=== PATIENT | female | born 1990 ===

== ENCOUNTER 2024-01-30 17:50 | Outpatient (REF) | payer SELFPAY ==
[2024-01-31 14:29] LABS: Bacterial Vaginosis PCR POSITIVE (Negative); Candida Group PCR NOT DETECTED (Not Detect); Candida glab krusei PCR NOT DETECTED (Not Detect); Trichomonas vaginalis PCR NOT DETECTED (Not Detect)
[2024-01-31 15:03] LABS: CT PCR DETECTED (Not Detect.); NG PCR DETECTED (Not Detect.)
== END 2024-01-30 17:51 | disposition home or self-care (01) ==
LOC: HO.LNP 17:50
PROVIDERS: Visit Provider Nurse Practitioner
DX: N89.8 Other specified noninflammatory disorders of vagina (principal)
CPT/HCPCS: 0352U; 87255; 87491; 87591

== ENCOUNTER 2024-01-31 11:37 | Outpatient (REF) | payer OTHER, SELFPAY ==
[2024-02-01 07:55] LABS: HBS Num1 0.54 mIU/mL (0-7.99); HBc Num1 0.13 S/CO (0.00-0.79); HBsAGNum1 0.54 S/CO (0.00-0.99); HIV AB/AG Nonreactive (Nonreactive); HIV Num 1 0.04 S/CO (0.00-0.99); Hepatitis B Core Antibody Nonreactive (Nonreactive); Hepatitis B Surface Antigen Negative (Negative); ~HepC Num1 0.09 S/CO (0.00-0.79); ~Hepatitis B Surface Antibody NONREACTIVE (Nonreactive); ~Hepatitis C Antibody Nonreactive (Nonreactive)
== END 2024-01-31 11:38 | disposition home or self-care (01) ==
LOC: HO.CHCLDS 11:37
PROVIDERS: Visit Provider Nurse Practitioner
DX: Z11.4 Encounter for screening for human immunodeficiency virus [HIV] (principal); Z11.3 Encounter for screening for infections with a predominantly sexual mode of transmission
CPT/HCPCS: 0352U; 86704; 86706; 86803; 87340; 87389; 87491; 87591

== ENCOUNTER 2024-08-06 13:47 | Outpatient (REF) | payer MEDICAID, SELFPAY ==
[2024-08-06 15:24] LABS: Bacterial Vaginosis PCR POSITIVE (Negative); Candida Group PCR NOT DETECTED (Not Detect); Candida glab krusei PCR NOT DETECTED (Not Detect); Trichomonas vaginalis PCR NOT DETECTED (Not Detect)
[2024-08-06 15:56] LABS: CT PCR DETECTED (Not Detect.); NG PCR NOT DETECTED (Not Detect.)
--- OUTSIDE RECORDS SUMMARY | 2024-08-06 16:29 | XMS_ITS | Clinical Summary ---
Author Organization [employer] Address [address] [place] [address] [address] [place] [address] Care Team Providers Care Microbiological Analyst Name Role Phone Lexusjimi Estrella TAM Primary Care Provider [phone] Allergies No known active allergies Medications benzoyl peroxide (Brevoxyl) 4 % gelIndications: Acne vulgaris Apply topically at bedtime. 42 g 4 03/19/20 25 Active ketoconazole (NIZOral) 2 % shampooIndicati ons:Seborrheic dermatitis of scalp Apply topically 2 (two) times a week. 120 mL 4 Active nitrofurantoin, macrocrystal-mo nohydrate, (Macrobid) 100 MG capsuleIndicati ons:UTI symptoms Take 1 capsule (100 mg) by mouth 2 times daily for 7 days. 14 capsule 5 08/14/19 25 Active doxycycline (Vibra-Tabs) 100 MG tabletIndicatio ns:Chlamydia Take 1 tablet (100 mg) by mouth 2 times daily for 7 days. Take with a full glass of water and do not lie down for at least 30 minutes after. 14 tablet 5 08/14/19 25 Active metroNIDAZOLE (Metrogel) 0.75 % vaginal gelIndications: Bacterial vaginosis Insert into the vagina at bedtime for 7 days. 70 g 5 08/14/19 25 Active Active Problems Problem Noted Date Diagnosed Date UTI symptoms 08/06/2024 Assessment & Plan (08/06/2024 1:17 PM EDT): I will treat her empirically with macrobid, UA and culture ordered patient will be contacted with results Vaginal discharge 08/06/2024 Acne 08/06/2024 Encounters Date Type Department Care Team Description 08/06/2024 10:20 AM EDT Office Visit [facility] [address] [place] [address] Jeanie Osborn MD UTI symptoms (Primary Dx); Vaginal discharge; Acne, unspecified acne type 08/06/[address] [facility] [address] [place] [address] Jeanie Osborn MD Bacterial vaginosis (Primary Dx); Chlamydia 08/06/2024 Travel from Last 3 Months Immunizations Name Administration Dates Next Due Hep B, adult 03/19/2024,02/04/2024 Family History Medical History Relation Name Comments Heart disease Father Hypertension Father's Brother Hypertension Father's Sister Breast cancer Mother Skin cancer Mother Osteoporosis Mother's Sister Uterine cancer Mother's Sister Relation Name Status Comments Father Alive Father's Brother Father's Sister Maternal Grandfather Maternal Grandmother Mother Mother's Sister Paternal Grandfather Alive Paternal Grandmother Alive Social History Tobacco Use Types Packs/Day Years Used Date Smoking Tobacco: Former Cigarettes Passive Smoke Exposure: Current Smokeless Tobacco: Current Tobacco Cessation:Ready to Q uit: Not Asked; Counseling Given: Not Answered Alcohol Use Standard Drinks/Week Comments Yes 0 (1 standard drink = 0.6 oz pur e alcohol) socially on special occasions Alcohol Answer Date Recorded How often do you have a drink containing alcohol ? 2 03/19/2024 How many drinks containing a lcohol do you have on a typical day when you are drinking? 2 03/19/2024 How often do you have six or more drinks on one occasion? 0 03/19/2024 Depression Answer Date Recorded Patient Health Questionnaire-9 Score 4 03/19/2024 Patient Health Questionnaire-9 Score 4 03/19/2024 Last PHQ-9: Questionnaire Data Not on file 1 05/20/2023 Housing Stability Answer Date Recorded What is your housing situation today? I have parmjit jair 03/19/[address] you li ve. Do you have problems with any of the following? None of the above 03/19/2024 Food Insecurity Answer Date Recorded Within the past 12 months, y ou worried that your food would run out before you got money to buy more: Sometimes True 2023 Within the past 12 months,th e food you bought just didn't last and you didn't have enough money to get more: Sometimes True 03/19/2024 Transportation Answer Date Recorded In the past 12 months, has l ack of transportation kept you from medical appts, meetings, work or from getting things needed for daily living? Yes, it has kept me from medical appointments or getting medications. 03/19/2024 Utilities Answer Date Recorded In the past 12 months, has t he electric, gas, oil or water company threatened to shut off services in your home? No 03/19/2024 Depression Answer Date Recorded Patient Health Questionnaire-2 Score 2 03/19/2024 Internet Access Answer Date Recorded Internet Access Q1 Yes 03/19/2024 Internet Access Q2 Not on file 03/19/2024 Comments Unknown Sex and Gender Information Value Date Recorded Sex Assigned at Female 05/30/2023 1:30 PM EST Legal Sex Female 2:17 PM EDT Gender Identity Female 05/30/2023 1:30 PM EST Sexual Orientation Straight 05/30/2023 1: 30 PM EST Last Filed Vital Signs Vital Sign Reading Time Taken Comments Blood Pressure 140/84 08/06/2024 10:03 AM EDT Pulse 102 08/06/2024 10:03 AM EDT Temperature 36.7 ??C (98.1 ??F) 08/06/2024 10:03 AM E DT Respiratory Rate 17 08/06/2024 10:03 AM EDT Oxygen Saturation 98% 08/06/2024 10:03 AM EDT Inhaled Oxygen Concentration - - Weight 56.2 kg (124 lb) 08/06/2024 10:03 AM EDT Height 157.5 cm (5' 2 ) 08/06/2024 10:03 AM EDT Body Mass Index 22.68 08/06/2024 10:03 AM EDT Plan of Treatment Health Maintenance Due Date Last Done Comments Lipid Panel 1991 Family Planning (PISQ) 09/29/2006 DTaP/Tdap/Td Vaccines (1 - Tdap) 09/29/2010 Pap Smear 09/29/2012 Cervical Cancer Screening 09/29/2021 HPV/Cotest 09/29/2021 COVID-19 Vaccine ( - 2023-2 5 season) 2023 Influenza Vaccine (#1) 2023 Hepatitis B Vaccines (3 of 3 - 19+ 3-dose series) 08/04/2024 03/19/2024, 02/04/2024 Alcohol/Substance Use Screening 03/19/2025 03/19/2024 Depression Screening 03/19/2025 03/19/2024, 03/19/2024 SDOH Screening 03/19/2025 03/19/2024 Tobacco Screening 08/06/2025 08/06/2024 Zoster Vaccines (1 of 2) 09/29/2041 RSV Patients and Patients Aged 60 years or older (1 - 1-dose 75+ series) 09/29/2066 HIV Screening Completed 01/31/2024 Hepatitis C Screening Completed 01/31/2024 HIB Vaccines Aged Out No longer eligi ble based on patient's age to complete this topic HPV Vaccines Aged Out No longer eligi ble based on patient's age to complete this topic Hepatitis A Vaccines Aged Out No long er eligible based on patient's age to complete this topic IPV Vaccines Aged Out No longer eligi ble based on patient's age to complete this topic Meningococcal Vaccine Aged Out No tracey mounika eligible based on patient's age to complete this topic Pneumococcal Vaccine: Pediatrics (0 to 5 Years) and At-Risk Patients (6 to 49) Years) Aged Out No longer eligible b ased on patient's age to complete this topic RSV under 20 months Aged Out No longe r eligible based on patient's age to complete this topic Rotavirus Vaccines Aged Out No longer eligible based on patient's age to complete this topic Procedures Procedure Name Priority Date/Time Associated Diagnosis Comments POCT URINALYSIS DIPSTICK Routine 08/06/2024 10:26 AM EDT UTI symptoms CHLAMYDIA/N. GONORRHOEAE RNA, TMA, UROGENITAL Routine 08/06/2024 10:20 AM EDT Vaginal discharge BACTERIAL VAGINOSIS PANEL Routine 08/06/2024 10:20 AM EDT Vaginal discharge POCT , URINE Routine 08/06/2024 10:18 AM EDT UTI symptoms Vaginal discharge HEPATITIS C AB W/REFL TO HCV RNA, QN, PCR Routine 01/31/2024 11:46 AM EDT Screening examination for STI HIV 1/2 ANTIGEN/ANTIBODY, FOURTH GENERATION W/RFL Routine 01/31/2024 11:46 AM EDT Screening examination for STI from Last 3 Months or Most Recently Relevant to Health Maintenance Results * (ABNORMAL) POCT urinalysis dipstick manually resulted (08/06/2024 10:26 AM EDT) Color, UA Yellow Clarity, UA Clear Glucose, UA Negative Bilirubin, UA Negative Ketones, UA Negative Spec Grav, UA 1.030 Blood, UA Positive(A) Negative, None Detected Comment:LARGE pH, UA 6.0 Protein, UA Trace Comment:30 mg/dl Urobilinogen, UA 0.2 Leukocytes, UA Trace Negative, Rare, Trace Nitrite, UA Negative Negative, None Detected Urine 08/06/2024 10:2 6 AM EDT Jeanie Hemphill MD POINT OF CARE TEST EN TER/EDIT ORDERABLES Final Result * (ABNORMAL) Bacterial Vaginosis (08/06/2024 10:20 AM EDT) TRICHOMONAS VAGINALIS DETECTION BY PCR NOT DETECTED Not Detect [facility] BACTERIAL VAGINOSIS DETECTION BY PCR POSITIVE(A) Negative [facility] Comment:The BV organism targ ets of the Xpert Xpress MVP test can becommensal in women; Xpert Xpress MVP positive results forbacterial vaginosis should be considered in conjunction withother clinical and patient information to determine thedisease status. Organisms that are not detected by the XpertXpress MVP test have also been reported to be associatedwith BV and aerobic vaginitis.The Xpert Xpress MVP test performance has not been evaluatedin patients under the age of 14. BRUNA GROUP DETECTION BY PCR NOT DETECTED Not Detect [facility] Bruna glab krusei PCR NOT DETECTED Not Detect [facility] Swab Vaginal structure / Unknown 08/06/2024 10:20 AM EDT 08/06/2024 1:49 PM EDT Jeanie Hemphill MD LAB MICROBIOLOGY - GE NERAL ORDERABLES Final Result [facility] [address] [place] [phone] [phone] * (ABNORMAL) Chlamydia/N. Gonorrhoeae RNA, TMA, Urogenitial (08/06/2024 10:20 AM EDT) CT PCR DETECTED(A) Not Detect. [facility] Comment:Detected results may be observed after successful antibiotictreatment due to target nucleic acids from residualnon-viable chlamydia. As with many diagnostic tests, resultsfrom the Xpert CT/NG assay should be interpreted inconjunction with other laboratory and clinical dataavailable to the clinician.Xpert CT/NG performance has not been evaluated in patientsless than 14 years of age. The assay should not be used forthe evaluationof suspected sexual abuse or for other medico- legalindications. Additional testing is recommended inany circumstance when false positive or false negativeresults could lead to adverse medical, social orpsychological consequences.These results must be reported by the ordering clinician orclinical facility to the [facility] required by state law. NG PCR NOT DETECTED Not Detect. [facility] Comment:A not detected test result does not exclude the possibilityof infection because test results can be affected byimproper specimen collection, concurrent antibiotic therapy,or the number of organisms in the specimen which may bebelow the sensitivity of the test. As with many diagnostictests, results from the Xpert CT/NG assay should beinterpreted in conjunction with other laboratory andclinical data available to the clinician.Xpert CT/NG performance has not been evaluated in patientsless than 14 years of age. The assay should not be used forthe evaluationof suspected sexual abuse or for other medico-legalindications. Additional testing is recommended in anycircumstance when false positive or false negative resultscould lead to adverse medical, social or psychologicalconsequences. Swab (Vaginal Swab) 08/06/2024 10:20 AM EDT 08/06/2024 1:49 PM EDT [facility] - 08/06/2024 3:57 PM EDT Vaginal Jeanie Hemphill MD LAB MICROBIOLOGY - GE NERAL ORDERABLES Final Result Performing Organization Address City/[facility]/ZIP Co de Phone Number [facility] [address] [place] [phone] * POCT , urine manually resulted (08/06/2024 10:18 AM EDT) Pathologist [facility] Preg Test, Ur Negative Negative, Indeterminate, None Detected, Invalid, Specimen unsatisfactory for evaluation, Weakly Positive Urine 08/06/2024 10:1 8 AM EDT eJanie Hemphill MD POINT OF CARE TEST EN TER/EDIT ORDERABLES Final Result * Hepatitis C Antibody with Reflex to HCV, RNA, Quantitative, Real-Time PCR (01/31/2024 11:46 AM EDT) [facility] Hepatitis C Antibody Nonreactive Nonreactive [facility] Comment:Antibodies to HCV no t detected; does not exclude early acuteHCV infection. Blood Venous blood specimen / Unknown 01/31/2024 11:46 AM EDT 01/31/2024 1:14 PM EDT [facility] - 02/01/2024 8:24 AM EDT ACCIDENT Estrella Prather NP LAB BLOOD ORDERABLES Final Resu lt Performing Organization Address [facility]/ZIP Co de Phone Number [facility] [address] [place] [phone] * HIV-1/2 Antigen and Antibodies, Fourth Generation, with Reflexes (01/31/2024 11:46 AM EDT) HIV AB/AG Nonreactive Nonreactive [facility] Comment:HIV-1 p24 Ag and/or HIV-1/HIV-2 Ab not detected.A test result that is nonreactive does not exclude thepossibility of exposure to or infection with HIV-1 and/orHIV-2. Nonreactive results in this assay for individualswith prior exposure to HIV-1 and/or HIV-2 may be due toantigen and antibody levels that are below the limit ofdetection of this assay.The [employer] HIV Ag/Ab Combo assay result andsupplemental assay results should be interpreted inconjunction with the patient's clinical presentation,history and other laboratory results. If the results areinconsistent with clinical evidence, additional testing issuggested to confirm the result. Blood Venous blood specimen / Unknown 01/31/2024 11:46 AM EDT 01/31/2024 1:14 PM EDT Narrative [facility] - 02/01/2024 8:24 AM EDT ACCIDENT us Estrella Prather NP LAB BLOOD ORDERABLES Final Resu lt [facility] [address] [place] [phone] from Last 3 Months or Most Recently Relevant to Health Maintenance Insurance [facility] H[employer] FULL Care Teams Microbiological Analyst Relationship Specialty Start Date End Date Estrella Prather NP [address] [place] [phone] PCP - General Family Medicine 01/31/24
--- OUTSIDE RECORDS SUMMARY | 2024-08-06 16:29 | XMS_ITS | Encounter Summary ---
Author Organization [employer] Address [address] [facility] [address] [place] [address] Care Team Providers Care Engineer Station Mainline Name Role Phone Estrella Prather YONATAN Primary Care Provider [phone] Encounter Details Date Type Department Care Team (Late st Contact Info) Description 08/06/2024 Orders Only [facility] [address] [place] [address] Jeanie Osborn MD [address] [place] [address] Bacterial vaginosis (Primary Dx); Chlamydia Social History Tobacco Use Types Packs/Day Years Used Date Smoking Tobacco: Former Cigarettes Passive Smoke Exposure: Current Smokeless Tobacco: Current Alcohol Use Standard Drinks/Week Comments Yes 0 [...] your housing situation today? I have parmjit adam 03/19/[address] you li ve. Do you have problems with any of the following? None of the above 03/19/2024 Food Insecurity Answer Date Recorded Within the past 12 months, y ou worried that your food would run out before you got money to buy more: Sometimes True 12/04/ 2024 Within the past 12 months,th e food [...] Orientation Straight 05/30/2023 1: 30 PM EST documented as of this encounter Plan of Treatment Not on file documented as of this encounter Visit Diagnoses Diagnosis Bacterial vaginosis- Primary Unspecified vaginitis and vulvovaginitis Chlamydia Other specified chlamydial infection, in conditions classified elsewhere and of unspecified site documented in this encounter Additional Health Concerns Assessment Noted Time PHQ-9 Depression Total Score: 4 03/19/20 10:26 AM EST documented as of this encounter Care Teams Engineer Station Mainline Relationship Specialty Start Date End Date Estrella Prather NP [address] [place] [phone] PCP - General Family Medicine 01/31/24 documented as of this encounter
--- OUTSIDE RECORDS SUMMARY | 2024-08-06 16:29 | XMS_ITS | Encounter Summary ---
Author Organization [employer] Address [address] [facility] [address] [place] [address] Care Team Providers Care Zoo Caretaker Name Role Phone Estrella Prather YONATAN Primary Care Provider [phone] Encounter Details Date Type Department Care Team (Latest Contact Info) Description 08/06/2024 Travel Social History Tobacco Use Types Packs/Day Years [...] documented as of this encounter Visit Diagnoses Not on filedocumented in this encounter Additional Health Concerns Assessment Noted Time PHQ-9 Depression Total Score: 4 03/19/20 10:26 AM EST documented as of this encounter Care Teams Zoo Caretaker Relationship Specialty Start Date End Date Estrella Prather NP [address] [place] [phone] PCP - General Family Medicine 01/31/24 documented as of this encounter
--- OUTSIDE RECORDS SUMMARY | 2024-08-06 16:29 | XMS_ITS | Encounter Summary ---
Author Organization [employer] [facility] Address [address] [place] [address] [address] [place] [address] Care Team Providers Care Windscreen Fitter Name Role Phone Estrella Prather YONATAN Primary Care Provider [phone] Reason for Referral * Consultation (Routine) - Authorized Specialty Diagnoses / Procedures Referred By Trey velázquez Referred To Contact Family Medicine Diagnoses Acne, unspecified acne type Jeanie Osborn MD [address] [place] [phone] Phone: tel: fax: Referral ID Status Reason Start Date Expiration Date Visits Requested Visits Authorized [id number] Authorized Specialty Services Required 08/06/2024 08/06/2025 1 1 Reason for Visit * Reason Comments Fever Back Pain Vaginal Discharge Encounter Details Date Type Department Care Team ([facility] Contact Info) Description 08/06/2024 10:20 AM EDT Office Visit [facility] [address] [place] [address] [phone] Jeanie Osborn MD [address] [place] [address] [phone] UTI symptoms (Primary Dx); Vaginal discharge; Acne, unspecified acne type Social History Tobacco Use Types Packs/Day Years [...] PM EST documented as of this encounter Last Filed Vital Signs Vital Sign Reading [...] Mass Index 22.68 08/06/2024 10:03 AM EDT documented in this encounter Progress Notes * Jeanie Hemphill MD - 08/06/2024 10:20 AM EDT SUBJECTIVE: Lucia Oreilly is a 33 y.o. year old female who presents for chills/fever and lower back pain . Acute Concerns: 2 days of chills, fever, lower back pain, she reports urinary frequency, urine mal odor and suprapubic pain Patient also reports she has acne for a long time, she already tried over the counter products but it did not help Social History Social History Narrative Not on file Patient Active Problem List Diagnosis UTI symptoms Vaginal discharge Acne Family History Problem Relation Name Age of Onset Breast cancer Mother Skin cancer Mother Heart disease Father Uterine cancer Mother's Sister Osteoporosis Mother's Sister Hypertension Father's Sister Hypertension Father's Brother Review of Systems Constitutional: Positive for chills, fatigue and fever. Negative for activity change, appetite change, diaphoresis and unexpected weight change. HENT: Negative. Respiratory: Negative. Cardiovascular: Negative. Genitourinary: Positive for difficulty urinating, dysuria, flank pain, frequency, pelvic pain and vaginal discharge. Negative for decreased urine volume, dyspareunia, enuresis, genital sores, hematuria, menstrual problem, urgency, vaginal bleeding and vaginal pain. OBJECTIVE: Vitals: 08/06/24 1003 BP: (!) 140/84 BP Location: Left arm Patient Position: Sitting BP Cuff Size: Adult Pulse: 102 Resp: 17 Temp: 98.1 ??F (36.7 ??C) TempSrc: Oral SpO2: 98% Weight: 124 lb (56.2 kg) Height: 5' 2 (1.575 m) Physical Exam Constitutional: Appearance: Normal appearance. Cardiovascular: Rate and Rhythm: Normal rate and regular rhythm. Pulmonary: Effort: Pulmonary effort is normal. Breath sounds: Normal breath sounds. Abdominal: General: Abdomen is flat. Palpations: Abdomen is soft. Musculoskeletal: Right lower leg: No edema. Left lower leg: No edema. Neurological: Mental Status: She is alert. Follow Up: No follow-ups on file. Current Outpatient Medications on File Prior to Visit Medication Sig Dispense Refill benzoyl peroxide (Brevoxyl) 4 % gel Apply topically at bedtime. 42 g 0 ketoconazole (NIZOral) 2 % shampoo Apply topically 2 (two) times a week. 120 mL 0 No current facility-administered medications on file prior to visit. Problem List Items Addressed This Visit UTI symptoms - Primary I will treat her empirically with macrobid, UA and culture ordered patient will be contacted with results Relevant Medications nitrofurantoin, macrocrystal-monohydrate, (Macrobid) 100 MG capsule Other Relevant Orders POCT urinalysis dipstick manually resulted (Completed) POCT , urine manually resulted (Completed) Culture, Urine, Routine Vaginal discharge Relevant Orders Bacterial Vaginosis POCT , urine manually resulted (Completed) Chlamydia/N. Gonorrhoeae RNA, TMA, Urogenitial Acne Relevant Orders Referral to [facility] Derm Skin Adult documented in this encounter Miscellaneous Notes * Assessment & Plan Note - Jeanie Hemphill MD - 08/06/2024 1:17 PM EDT Associated Problem(s): UTI symptoms I will treat her empirically with macrobid, UA and culture ordered patient will be contacted with results documented in this encounter Plan of Treatment Scheduled Orders Name Type Priority Associated Diagnoses Orde r Schedule Culture, Urine, Routine Microbiology Routine UTI symptoms Ordered: 08/06/2024 Scheduled Referrals Name Type Priority Associated Diagnoses Orde r Schedule Referral to [facility] Derm Skin Adult Outpatient Referral Routine Acne, unspecified acne type Expected: 08/06/2024 (Approximate), Expires: 08/06/2025 documented as of this encounter Procedures Procedure Name Priority Date/Time Associated Diagnosis Comments POCT URINALYSIS DIPSTICK Routine 08/06/2024 10:26 AM EDT UTI symptoms BACTERIAL VAGINOSIS PANEL Routine 08/06/2024 10:20 AM EDT Vaginal discharge CHLAMYDIA/N. GONORRHOEAE RNA, TMA, UROGENITAL Routine 08/06/2024 10:20 AM EDT Vaginal discharge POCT , URINE Routine 08/06/2024 10:18 AM EDT UTI symptoms Vaginal discharge documented in this encounter Results * (ABNORMAL) POCT urinalysis dipstick manually [...] EN TER/EDIT ORDERABLES Final Result * (ABNORMAL) Chlamydia/N. Gonorrhoeae RNA, TMA, Urogenitial (08/06/2024 10:20 AM EDT) CT PCR DETECTED(A) Not Detect. [facility] Comment:Detected results may be observed [...] the ordering clinician orclinical facility [facility] required by [facility] law. NG PCR NOT DETECTED Not Detect. [facility] Comment:A not detected test result [...] 10:20 AM EDT 08/06/2024 1:49 PM EDT Narrative [facility] - 08/06/2024 3:57 PM EDT Vaginal Jeanie Hemphill MD LAB MICROBIOLOGY - [facility] ORDERABLES Final Result [facility] [address] [place] [phone] * (ABNORMAL) Bacterial Vaginosis (08/06/2024 10:20 AM EDT) TRICHOMONAS VAGINALIS DETECTION BY PCR NOT DETECTED Not Detect [facility] BACTERIAL VAGINOSIS DETECTION BY PCR POSITIVE(A) Negative [facility] Comment:The BV organism targ ets [...] DETECTION BY PCR NOT DETECTED Not Detect [facility] Bruna glab krusei PCR NOT DETECTED Not Detect [facility] Swab Vaginal structure / Unknown 08/06/2024 10:20 AM EDT 08/06/2024 1:49 PM EDT Jeanie Hemphill MD LAB MICROBIOLOGY - GE NERAL ORDERABLES Final Result [facility] [address] [place] [phone] * POCT , urine manually resulted (08/06/2024 10:18 AM EDT) Preg Test, Ur Negative Negative, Indeterminate, None Detected, Invalid, Specimen unsatisfactory for evaluation, Weakly Positive Urine 08/06/2024 10:1 8 AM EDT us Jeanie Hemphill MD POINT OF CARE TEST EN TER/EDIT ORDERABLES Final Result documented in this encounter Visit Diagnoses Diagnosis UTI symptoms- Primary Vaginal discharge Leukorrhea, not specified as infective Acne, unspecified acne type documented in this encounter Additional Health Concerns Assessment Noted Time PHQ-9 Depression Total Score: 4 03/19/20 10:26 AM EST documented as of this encounter Care Teams Windscreen Fitter Relationship Specialty Start Date End Date Estrella Prather NP [address] [place] [phone] PCP - General Family Medicine 01/31/24 documented as of this encounter
== END 2024-08-06 13:48 | disposition home or self-care (01) ==
LOC: HO.HHCLNP 13:47
PROVIDERS: Visit Provider Internal Medicine
DX: N89.8 Other specified noninflammatory disorders of vagina (principal); R39.9 Unspecified symptoms and signs involving the genitourinary system
CPT/HCPCS: 81515; 87086; 87491; 87591

== ENCOUNTER 2024-11-10 09:08 | Outpatient (REF) | payer MEDICAID, SELFPAY ==
[2024-11-11 15:59] LABS: C. trachomatis RNA TMA NOT DETECTED (NOT DETECTED); N. gonorrhoeae RNA TMA NOT DETECTED (NOT DETECTED); Trichomonas (NAAT) NOT DETECTED (NOT DETECTED)
== END 2024-11-10 09:09 | disposition home or self-care (01) ==
LOC: HO.LNP 09:08
PROVIDERS: Visit Provider Advanced Practice Midwife
DX: Z12.4 Encounter for screening for malignant neoplasm of cervix (principal); N89.8 Other specified noninflammatory disorders of vagina; R39.9 Unspecified symptoms and signs involving the genitourinary system; Z11.51 Encounter for screening for human papillomavirus (HPV); Z11.3 Encounter for screening for infections with a predominantly sexual mode of transmission
CPT/HCPCS: 87086; 87088; 87186; 87491; 87591; 87626; 87661; 88175

== ENCOUNTER 2024-12-30 11:43 | Outpatient (REF) | payer OTHER, SELFPAY ==
--- OUTSIDE RECORDS SUMMARY | 2024-12-29 17:40 | XMS_ITS | Encounter Summary ---
Author Organization [employer] Address [address] [facility] [address] [place] [address] Care Team Providers Care Dead Mail Checker Name Role Phone Estrella Prather YONATAN Primary Care Provider [phone] Reason for Visit * Reason Comments Vaginal Itching Encounter Details Date Type Department Care Team ([facility] st Contact Info) Description 12/29/2024 5:40 PM EDT Office Visit [facility] [address] [place] [address] Ilana Bentley FNP [address] [place] [address] Vaginal discharge (Primary Dx); UTI symptoms Social History Tobacco Use Types Packs/Day Years [...] the past 12 months, has t he [employer], gas, oil or water company threatened to shut off services in your home? No 03/19/2024 Depression Answer Date Recorded Patient Health Questionnaire-2 Score 2 03/19/2024 Internet Access Answer Date Recorded Internet Access Q1 Yes 03/19/2024 Internet Access Q2 Not on file 03/19/2024 Comments No Sex and Gender Information Value Date Recorded Sex Assigned at Female 05/30/2023 1:30 PM EST Legal Sex Female 2:17 PM EDT Gender Identity Female 05/30/2023 1:30 PM EST Sexual Orientation Straight 05/30/2023 1: 30 PM EST documented as of this encounter Last Filed Vital Signs Vital Sign Reading Time Taken Comments Blood Pressure 147/83 12/29/2024 5:36 PM EDT Pulse 72 12/29/2024 5:36 PM EDT Temperature 36 C (96.8 F) 12/29/2024 5:36 PM EDT Respiratory Rate 14 12/29/2024 5:36 PM EDT Oxygen Saturation - - Inhaled Oxygen Concentration - - Weight 53.1 kg (117 lb) 12/29/2024 5:36 PM EDT Height 157.5 cm (5' 2 ) 12/29/2024 5:36 PM EDT Body Mass Index 21.4 12/29/2024 5:36 PM EDT documented in this encounter Progress Notes * ESTEE Taylor - 12/29/2024 5:40 PM EDT Subjective Patient ID: Lucia Oreilly is a 34 y.o. female. Nozzle Worker (Ann) present and served as desk manager during visit. Lucia reports vaginal discharge x 2 days. Discharge is white and not malodorous. She has vaginal itching, pain, burning, and pain with intercourse. Has no hx of recent STI. Has no recent hx of katie. Also reports pain andburning with urination. Vaginal Itching Onset quality: Sudden Duration: 2 days Progression: Unchanged Associated symptoms: no abdominal pain, no fever and no rash Review of Systems Constitutional: Negative for fever. Gastrointestinal: Negative for abdominal pain. Genitourinary: Positive for dysuria, frequency, hematuria and urgency. Negative for flank pain and menstrual problem. Skin: Negative for rash. Objective BP (!) 147/83 (BP Location: Left arm, Patient Position: Sitting, BP Cuff Size: Adult) Pulse 72 Temp 96.8 ??F (36 ??C) (Oral) Resp 14 Ht 5' 2 (1.575 m) Wt 117 lb (53.1 kg) BMI 21.40 kg/m?? Physical Exam Constitutional: Appearance: Normal appearance. HENT: Head: Normocephalic. Right Ear: External ear normal. Left Ear: External ear normal. Nose: Nose normal. Mouth/Throat: Mouth: Mucous membranes are moist. Eyes: Conjunctiva/sclera: Conjunctivae normal. Cardiovascular: Rate and Rhythm: Normal rate and regular rhythm. Heart sounds: Normal heart sounds. Pulmonary: Effort: Pulmonary effort is normal. Breath sounds: Normal breath sounds. Musculoskeletal: General: Normal range of motion. Cervical back: Normal range of motion and neck supple. Skin: General: Skin is warm and dry. Capillary Refill: Capillary refill takes less than 2 seconds. Neurological: Mental Status: She is alert and oriented to person, place, and time. Psychiatric: Mood and Affect: Mood normal. Behavior: Behavior normal. Thought Content: Thought content normal. Judgment: Judgment normal. Assessment/Plan Diagnoses and all orders for this visit: Vaginal discharge - Chlamydia/N. Gonorrhoeae RNA, TMA, Vaginal - Bacterial Vaginosis Panel UTI symptoms Sx consistent with uncomplicated UTI Urine analysis and culture show small david Send for culture Increase fluids Macrobid 100 mg po bid x 5 days (ensure creatinine clearance over 30) RTC if sx worsen or persist - POCT Urinalysis - Culture, Urine, Routine; Future Other orders Vaginal hygiene reviewed. Avoid scented/perfumed products. Wash vulva with water only CT/GC and BV panel pending Plan based on results RTC if sx persist or worsen - nitrofurantoin, macrocrystal-monohydrate, (Macrobid) 100 MG capsule; Take 1 capsule (100 mg) by mouth 2 times daily for 5 days. documented in this encounter Plan of Treatment Upcoming Encounters Date Type Department Care Team (Late st Contact Info) Description 03/20/2025 10:00 AM EST Office Visit [facility] [address] [place], [place] [phone] Brian Jeong MD [address] [place], [place] [phone] Scheduled Orders Name Type Priority Associated Diagnoses Orde r Schedule Culture, Urine, Routine Microbiology Routine UTI symptoms Expected: 12/29/2024 (Approximate), Expires: 12/29/2025 Chlamydia/N. Gonorrhoeae RNA, TMA, Vaginal Microbiology Routine Vaginal discharge Ordered: 12/29/2024 Bacterial Vaginosis Panel Microbiology Routine Vaginal discharge Ordered: 12/29/2024 documented as of this encounter Procedures Procedure Name Priority Date/Time Associated Diagnosis Comments POCT URINALYSIS DIPSTICK Routine 12/29/2024 5:51 PM EDT UTI symptoms documented in this encounter Results * (ABNORMAL) POCT Urinalysis (12/29/2024 5:51 PM EDT) Color, UA Yellow Clarity, UA Cloudy Glucose, UA Negative Bilirubin, UA Negative Ketones, UA Negative Spec Grav, UA 1.020 Blood, UA Positive(A) Negative, None Detected Comment:trace-intact pH, UA 7.0 Protein, UA 3+ 500+++ Comment:30 mg/dl Urobilinogen, UA 0.2 Leukocytes, UA Trace Negative, Rare, Trace Nitrite, UA Negative Negative, None Detected Urine 12/29/2024 5:51 PM EDT Santo Awan MD POINT OF CARE TEST ENTER/EDIT OR DERABLES Final Result documented in this encounter Visit Diagnoses Diagnosis Vaginal discharge- Primary Leukorrhea, not specified as infective UTI symptoms documented in this encounter Additional Health Concerns Assessment Noted Time PHQ-9 Depression Total Score: 4 03/19/20 24 10:26 AM EST documented as of this encounter Care Teams Dead Mail Checker Relationship Specialty Start Date End Date Estrella Prather NP [address] [place] [address] PCP - General Family Medicine 01/31/24 documented as of this encounter
[2024-12-30 13:00] LABS: Bacterial Vaginosis PCR POSITIVE (Negative); Candida Group PCR NOT DETECTED (Not Detect); Candida glab krusei PCR NOT DETECTED (Not Detect); Trichomonas vaginalis PCR NOT DETECTED (Not Detect)
[2024-12-30 13:31] LABS: CT PCR NOT DETECTED (Not Detect.); NG PCR NOT DETECTED (Not Detect.)
--- OUTSIDE RECORDS SUMMARY | 2024-12-30 15:57 | XMS_ITS | Encounter Summary ---
Author Organization [employer] Address [address] [address] [place] [address] Care Team Providers Care Hand Alterations Seamstress Name Role Phone LexusEstrella krause YONATAN Primary Care Provider [phone] Encounter Details Date Type Department Care Team ([facility] st Contact Info) Description 11/12/2024 Results Follow-Up [facility] [address] [place] [address] Magalie Dawkins CNM [address] [place] [address] HPV DNA, Low/High Risk Social History Tobacco Use Types Packs/Day Years [...] as of this encounter Plan of Treatment Upcoming Encounters Date Type Department Care Team (Late st Contact Info) Description 03/20/2025 10:00 AM EST Office Visit [facility] [address] [place] [address] Brian Jeong MD [address] [place] [address] documented as of this encounter Visit Diagnoses Not on filedocumented in this encounter Additional Health Concerns Assessment Noted Time PHQ-9 Depression Total Score: 4 03/19/20 10:26 AM EST documented as of this encounter Care Teams Hand Alterations Seamstress Relationship Specialty Start Date End Date Estrella Prather NP [address] [place] [address] PCP - General Family Medicine 01/31/24 documented as of this encounter
--- OUTSIDE RECORDS SUMMARY | 2024-12-30 15:57 | XMS_ITS | Clinical Summary ---
Author Organization [employer] Address [address] [place] [address] [address] [place] [address] Care Team Providers Care Record Changer Tester Name Role Phone Estrella Prather YONATAN Primary Care Provider [phone] Allergies No known active allergies Medications benzoyl peroxide (Brevoxyl) 4 % gelIndications: Acne vulgaris Apply topically at bedtime. 42 g 4 03/19/20 25 Active ketoconazole (NIZOral) 2 % shampooIndicati ons:Seborrheic dermatitis of scalp Apply topically 2 (two) times a week. 120 mL 4 Active nitrofurantoin, macrocrystal-mo nohydrate, (Macrobid) 100 MG capsule Take 1 capsule (100 mg) by mouth 2 times daily for 5 days. 10 capsule 5 01/04/20 25 Active metroNIDAZOLE (Flagyl) 500 MG tabletIndicatio ns:Bacterial vaginosis Take 1 tablet (500 mg) by mouth 2 times daily for 7 days. 14 tablet 5 01/07/20 25 Active Active Problems Problem Noted Date Diagnosed Date UTI symptoms 08/06/2024 Assessment & Plan (08/06/2024 1:17 PM EDT): I will treat her empirically with macrobid, UA and culture ordered patient will be contacted with results Vaginal discharge 08/06/2024 Acne 08/06/2024 Encounters Date Type Department Care Team Description 12/30/2024 Orders Only [facility] [address] [place] [phone] Jeanie Osborn MD Bacterial vaginosis (Primary Dx) 12/30/2024 Orders Only [facility] [address] [place] [phone] Emerita Macias MD BV (bacterial vaginosis) 12/29/2024 5:40 PM EDT Office Visit [facility] [address] [place] [phone] Ilana Bentley FNP Vaginal discharge (Primary Dx); UTI symptoms 12/29/2024 Travel 11/12/2024 Results Follow-Up [address] [address] Bina Hensley CNM HPV DNA, Low/High Risk 11/12/2024 Orders Only [address] [address] Bina Hensley CNM 11/10/2024 Results Follow-Up [address] [address] Bina Hensley CNM POCT urinalysis dipstick manually resulted, STI testing add on (NG, CT, Trich), Culture, Urine, Routine, Pap Smear 11/06/2024 1:45 PM EDT Office Visit [address] [address] Bina Hensley CNM Vaginal discharge (Primary Dx); Cervical cancer screening; Urinary symptom or sign; Screening examination for venereal disease 11/06/2024 Orders Only [address] [address] Bina Hensley CNM 11/06/2024 Travel 11/04/[address] [address] Estrella Prather NP Nurse Triage from Last 3 Months Immunizations Immunization Administration Dates Next Due Hep B, adult [...] the past 12 months, has t he [employer], gas, oil or water company threatened to shut off services in your home? No 03/19/2024 Depression Answer Date Recorded Patient Health Questionnaire-2 Score 2 03/19/2024 Internet Access Answer Date Recorded Internet Access Q1 Yes 03/19/2024 Internet Access Q2 Not on file 03/19/2024 Comments No Intention Date Recorded No desire to become (finding) 0 11/06/2024 Sex and Gender Information Value Date Recorded [...] 14 12/29/2024 5:36 PM EDT Oxygen Saturation 99% 11/06/2024 1:57 PM EDT Inhaled Oxygen Concentration - - Weight 53.1 kg (117 lb) 12/29/2024 5:36 PM EDT Height 157.5 cm (5' 2 ) 12/29/2024 5:36 PM EDT Body Mass Index 21.4 12/29/2024 5:36 PM EDT Plan of Treatment Upcoming Encounters Date Type Department Care Team (Late st Contact Info) Description 03/20/2025 10:00 AM EST Office Visit [facility] [address] [place] [address] Brian Jeong MD [address] [place] [address] Health Maintenance Due Date Last Done Comments Lipid Panel 1990 Disability Screening 1990 HPV Vaccines (1 - 3-dose series) 09/29/2006 DTaP/Tdap/Td Vaccines (1 - Tdap) 09/29/2010 Hepatitis B Vaccines (3 of 3 - 19+ 3-dose series) 08/04/2024 03/19/2024, 02/04/2024 COVID-19 Vaccine (1 - 2023-2 5 season) 2024 Influenza Vaccine (#1) 2024 Alcohol/Substance Use Screening 03/19/2025 03/19/2024 Depression Screening 03/19/2025 03/19/2024, 03/19/2024 SDOH Screening 03/19/2025 03/19/2024 Cervical Cancer Screening 11/06/2025 Family Planning (PISQ) 11/06/2025 11/06/2024 HPV/Cotest 11/06/2025 11/06/2024 Pap Smear 11/06/2025 11/06/2024 Tobacco Screening 11/06/2025 11/06/2024 Zoster Vaccines (1 of 2) 09/29/2041 RSV [...] patient's age to complete this topic Meningococcal B Vaccine Aged Out No l onger eligible based on patient's age to complete this topic Meningococcal Vaccine Aged Out No tracey mounika eligible based on patient's age to complete this topic Pneumococcal Vaccine: Pediatrics (0 to 5 Years) and At-Risk Patients (6 to 49) Years Aged Out No longer eligible b ased on patient's age to complete this topic RSV under 20 months Aged Out No longe r eligible based on patient's age to complete this topic Rotavirus Vaccines Aged Out No longer eligible based on patient's age to complete this topic Procedures Procedure Name Priority Date/Time Associated Diagnosis Comments CHLAMYDIA/N. GONORRHOEAE RNA, TMA, UROGENITAL Routine 12/30/2024 12:00 AM EDT BACTERIAL VAGINOSIS PANEL Routine 12/30/2024 12:00 AM EDT POCT URINALYSIS DIPSTICK Routine 12/29/2024 5:51 PM EDT UTI symptoms PAP SMEAR Routine 11/06/2024 2:40 PM EDT Cervical cancer screening HPV DNA, LOW/HIGH RISK Routine 11/06/2024 2:40 PM EDT CHLAMYDIA/N. GONORRHOEAE AND T. VAGINALIS RNA, QUAL,TMA Routine 11/06/2024 2:27 PM EDT Vaginal discharge POCT WET MOUNT/KAMILA Routine 11/06/2024 2: 22 PM EDT Vaginal discharge POCT URINALYSIS DIPSTICK Routine 11/06/2024 2:21 PM EDT Urinary symptom or sign CULTURE, URINE, ROUTINE Routine 11/06/2024 2:15 PM EDT Urinary symptom or sign HEPATITIS C AB W/REFL TO HCV RNA, QN, PCR Routine 01/31/2024 11:46 AM EDT Screening examination for STI HIV 1/2 ANTIGEN/ANTIBODY, FOURTH GENERATION W/RFL Routine 01/31/2024 11:46 AM EDT Screening examination for STI from Last 3 Months or Most Recently Relevant to Health Maintenance Results * (ABNORMAL) Bacterial Vaginosis (12/30/2024 12:00 AM EDT) TRICHOMONAS VAGINALIS DETECTION BY PCR NOT DETECTED Not Detect [facility] BACTERIAL VAGINOSIS DETECTION BY PCR POSITIVE(A) Negative [facility] Comment:The BV organism targ ets [...] DETECTION BY PCR NOT DETECTED Not Detect [facility] Bruna glab krusei PCR NOT DETECTED Not Detect [facility] 12/30/2024 12/30/2024 us Emerita Cobb MD LAB MICROBIOLOGY - GENERA L ORDERABLES Final Result [facility] [address] [place] [phone] * Chlamydia/N. Gonorrhoeae RNA, TMA, Urogenitial (12/30/2024 12:00 AM EDT) CT PCR NOT DETECTED Not Detect. [facility] Comment:A not detected test result [...] lead to adverse medical, social or psychologicalconsequences. NG PCR NOT DETECTED Not Detect. [facility] Comment:A not detected test result [...] lead to adverse medical, social or psychologicalconsequences. 12/30/2024 12/30/2024 us Emerita Cobb MD LAB MICROBIOLOGY - GENERA L ORDERABLES Final Result [facility] [address] [place] [address] [phone] * (ABNORMAL) POCT Urinalysis (12/29/2024 5:51 PM EDT) Only the most recent of2 resultswithin the time period is included. Color, UA Yellow Clarity, UA Cloudy Glucose, [...] CARE TEST ENTER/EDIT OR DERABLES Final Result * (ABNORMAL) HPV DNA, Low/High Risk (11/06/2024 2:40 PM EDT) HPV High Risk Positive(A) Negative [facility] HPV Genotype 16 Negative Negative [facility] HPV Genotype 18 Negative Negative [facility] Comment:HPV testing performe d at [facility] (CLIA#[id number]), [address] [place] [address].Testing for HPV was performed using the Lilly CHAPO 6800system. The presence of HPV in the female genital tract isassociated with a number of diseases, including cervicalcarcinoma. The HPV DNA high risk pool tests for HPV 31, 33,35, 39, 45, 51, 52, 56, 58, 59, 66 and 68. The testing forHPV 16 and 18 genotypes has also been performed. A positiveresult indicates detection of nucleic acid sequences fromone or more subtypes, whereas a negative result indicatessuch sequences were not detected. 11/06/2024 2:40 PM EDT 11/10/2024 8:00 AM EDT us Bina Hensley [facility] BLOOD ORDERABLES Liat stanley Result [facility] [address] [place] [phone] * Pap Smear (11/06/2024 2:40 PM EDT) Swab Cervix uteri structure / Unknown 11/06/2024 2:40 PM EDT 11/10/2024 8:00 AM EDT [facility] - 11/18/2024 7:37 AM EDT ----- ------- Name: Lucia Hogan Age/Sex: 34/F : 1990 Unit#: [id number] Attend Dr: BINA HENSLEY CNM Re11/10/24 Status: DEP REF Location: HO.LNP Disch: ----- ------- SPEC : [id number] RECD: 11/10/24 STATUS: KVNG RDZ NUM: [id number] ABEBE: 11/06/24-[address] [facility] [address]: BINA HENSLEY CNM ENTERED: 11/10/24 SP TYPE: Pap [facility] : ORDERED: Pap Smear Interpretation Satisfactory for evaluation. Negative for intraepithelial lesion or malignancy. No endocervical cells seen. HPV High Risk: Positive HPV Genotyping 16: Negative HPV Genotyping 18: Negative Clinical Information LMP: Unknown date Previous PAP test: Unknown date/findings Other history: Cervical cancer screening Material Received ThinPrep-Cervical PAP Disclaimer As of February 06, 2024, the technical services to include automated prescreening performed by the ThinPrep Imaging System, PAP screening and HPV testing will be performed at [facility] (CLIA #[id number]), [address] [place] [address]. Testing for HPV was performed using the Lilly CHAPO 6800 system. The presence of HPV in the female genital tract is associated with a number of diseases, including cervical carcinoma. The HPV DNA high risk pool tests for HPV 31, 33, 35, 39, 45, 51, 52, 56, 58, 59, 66 and 68. The testing for HPV 16 and 18 genotypes has also been performed. A positive result indicates detection of nucleic acid sequences from one or more subtypes, whereas a negative result indicates such sequences were not detected. All professional services are performed by [facility] ([address] [place], [place] [id number]; ; CLIA #[id number]). The PAP Test is a screening procedure with the inherent possibility of both false negative and false positive results. Results should be interpreted in the context of historic and current clinical findings. Reliability of the PAP Test is enhanced by performing the test on a regular repetitive basis. CONTINUED ON NEXT PAGE ----- ------- Name: Lucia Hogan Age/Sex: 34/F : 1990 Unit#: [id number] Attend Dr: BINA HENSLEY CNM Re11/10/24 Status: DEP REF Location: HO.LNP Disch: ----- ------- SPEC : [id number] RECD: 11/10/24 STATUS: KVNG RDZ NUM: [id number] ABEBE: 11/06/24-[address] [facility] [address]: BINA HENSLEY CNM ENTERED: 11/10/24 SP TYPE: Pap Smr OTHR DR: ORDERED: Pap Smear ----- ------- Signed (signature on file) LINDA Osborn (ASCP) 11/18/24 0737 ----- ------- END OF REPORT Bina Hensley [facility] CYTOLOGY ORDERABLES F inal Result [facility] [address] [place] [phone] * STI testing add on (NG, CT, Trich) (11/06/2024 2:27 PM EDT) Trichomonas (NAAT) NOT DETECTED NOT DETECTED [facility] Comment:The analytical perfo rmance characteristics of thisassay have been determined by [employer]. Themodifications have not been cleared or approved bythe FDA. This assay has been validated pursuant to theCLIA regulations and is used for clinical purposes.For additional information, please refer tohttp://education.[employer].G.ho.st/faq/Trichomonastma(This link is being provided for information/educational purposes only.)THIS TEST WAS PERFORMED AT:[employer] [phone] PARKS MD CTNG Ref Lab NOT DETECTED NOT DETECTED [facility] NG Ref Lab NOT DETECTED NOT DETECTED [facility] ThinPrep vial Cervix uteri structure / Unknown 11/06/2024 2:27 PM EDT 11/06/2024 4:26 PM EDT Narrative [facility] - 11/11/2024 3:59 PM EDT Collection Date: [id number] by: JOE Woods: Cervix [facility] CenterBinahank Hensley [facility] CYTOLOGY ORDERABLES F inal Result [facility] [address] [place] [phone] * POCT fern test, vaginal fluid manually resulted (11/06/2024 2:22 PM EDT) KAMILA Prep Positive Comment:neg whiff, pos hypha e, neg clue, neg trich, neg wbc, pH 5 Vaginal Fluid Vaginal structure / Unknown 11/06/2024 2:22 PM EDT [facility] POINT OF CARE TEST ENTER/ EDIT ORDERABLES Final Result * Culture, Urine, Routine (11/06/2024 2:15 PM EDT) Urine Urine specimen obtained by clean catch procedure / Unknown 11/06/2024 2:15 PM EDT 11/06/2024 4:26 PM EDT Comment:UACC Narrative [facility] - 11/08/2024 7:32 AM EDT Escherichia coli Quant 50,000 to 100,000 cfu/mL Escherichia coli: Ampicillin <=2(S) Escherichia coli: Cefazolin (Urine) <=1(S) Escherichia coli: Cefepime <=0.12(S) Escherichia coli: Ceftriaxone <=0.25(S) Escherichia coli: Ciprofloxacin <=0.06(S) Escherichia coli: Gentamicin <=1(S) Escherichia coli: Nitrofurantoin <=16(S) Escherichia coli: Trimethoprim/Sulfamethoxazole <=20(S) Specimen Source: Urine clean catch Bina Hensley [facility] MICROBIOLOGY - GENERA L ORDERABLES Final Result Performing Organization Address [facility] Co de Phone Number [facility] [address] [place] [address] [phone] * Hepatitis C Antibody with Reflex to HCV, RNA, Quantitative, Real-Time PCR (01/31/2024 11:46 AM EDT) Hepatitis C Antibody Nonreactive Nonreactive [facility] Comment:Antibodies to HCV no t detected; does not exclude early acuteHCV infection. Blood Venous blood specimen / Unknown 01/31/2024 11:46 AM EDT 01/31/2024 1:14 PM EDT Narrative [facility] - 02/01/2024 8:24 AM EDT ACCIDENT us Estrella Prather MENS LOCKER ROOM ATTENDANT LAB BLOOD ORDERABLES Final Resu lt Performing Organization Address [facility] Co de Phone Number [facility] [address] [place] [address] [phone] * HIV-1/2 Antigen and Antibodies, Fourth Generation, with Reflexes (01/31/2024 11:46 AM EDT) HIV AB/AG Nonreactive Nonreactive [facility] Comment:HIV-1 p24 Ag and/or HIV-1/HIV-2 Ab not detected.A test result that is nonreactive does not exclude thepossibility of exposure to or infection with HIV-1 and/orHIV-2. Nonreactive results in this assay for individualswith prior exposure to HIV-1 and/or HIV-2 may be due toantigen and antibody levels that are below the limit ofdetection of this assay.The Saisei HIV Ag/Ab Combo assay result andsupplemental assay results should be interpreted inconjunction with the patient's clinical presentation,history and other laboratory results. If the results areinconsistent with clinical evidence, additional testing issuggested to confirm the result. Blood Venous blood specimen / Unknown 01/31/2024 11:46 AM EDT 01/31/2024 1:14 PM EDT Narrative [facility] - 02/01/2024 8:24 AM EDT ACCIDENT Estrella Prather NP LAB BLOOD ORDERABLES Final Resu lt [facility] [address] [place] [phone] from Last 3 Months or Most Recently Relevant to Health Maintenance Insurance [employer] Care Teams Record Changer Tester Relationship Specialty Start Date End Date Estrella Prather NP [address] [place] [address] PCP - General Family Medicine 01/31/24
--- OUTSIDE RECORDS SUMMARY | 2024-12-30 15:57 | XMS_ITS | Encounter Summary ---
Author Organization [employer] Address [address] [facility] [address] [place] [address] Care Team Providers Care Meteorological Engineer Name Role Phone Estrella Prather YONATAN Primary Care Provider [phone] Encounter Details Date Type Department Care Team ([facility] st Contact Info) Description 12/30/2024 Orders Only [facility] [address] [place] [address] Emerita Macias MD [address] [place] [address] BV (bacterial vaginosis) Social History Tobacco Use Types Packs/Day Years [...] PM EST documented as of this encounter Progress Notes * Salome Bazan RN - 12/30/2024 1:01 PM EDT TC placed to pt whe was informed of positive test results and covering provider is sending oral medication pt request documented in this encounter Miscellaneous Notes * Addendum Note - Salome Bazan RN - 12/30/2024 1:01 PM EDTAddended by: SALOME BAZAN on: 12/30/2024 02:58 PM Modules accepted: Orders documented in this encounter Plan of Treatment Upcoming Encounters Date Type Department Care Team (Late st Contact Info) Description 03/20/2025 10:00 AM EST Office Visit [facility] [address] [place] [address] Brian Jeong MD [address] [place] [address] documented as of this encounter Procedures Procedure Name Priority Date/Time Associated Diagnosis Comments BACTERIAL VAGINOSIS PANEL Routine 12/30/2024 12:00 AM EDT CHLAMYDIA/N. GONORRHOEAE RNA, TMA, UROGENITAL Routine 12/30/2024 12:00 AM EDT documented in this encounter Results * Chlamydia/N. Gonorrhoeae RNA, TMA, Urogenitial (12/30/2024 12:00 AM EDT) CT PCR NOT DETECTED Not Detect. [facility] Comment:A not detected test result [...] psychologicalconsequences. NG PCR NOT DETECTED Not Detect. [facility] Comment:A not detected test result [...] L ORDERABLES Final Result Performing Organization Address [facility] Co de Phone Number [facility] [address] [place] [phone] * (ABNORMAL) Bacterial Vaginosis (12/30/2024 12:00 AM EDT) TRICHOMONAS VAGINALIS DETECTION BY PCR NOT DETECTED Not Detect [facility] BACTERIAL VAGINOSIS DETECTION BY PCR POSITIVE(A) Negative [facility] Comment:The BV organism targ ets [...] DETECTION BY PCR NOT DETECTED Not Detect [facility] Bruna glab krusei PCR NOT DETECTED Not Detect [facility] 12/30/2024 12/30/2024 us Emerita Cobb MD LAB MICROBIOLOGY - GENERA L ORDERABLES Final Result Performing Organization Address [facility] Co de Phone Number [facility] [address] [place] [phone] documented in this encounter Visit Diagnoses Diagnosis BV (bacterial vaginosis) Unspecified vaginitis and vulvovaginitis documented in this encounter Additional Health Concerns Assessment Noted Time PHQ-9 Depression Total Score: 4 03/19/20 24 10:26 AM EST documented as of this encounter Care Teams Meteorological Engineer Relationship Specialty Start Date End Date Estrella Prather NP [address] [place] [phone] PCP - General Family Medicine 01/31/24 documented as of this encounter
--- OUTSIDE RECORDS SUMMARY | 2024-12-30 15:57 | XMS_ITS | Encounter Summary ---
Author Organization [employer] Address [address] [facility] [address] [place] [address] Care Team Providers Care Field Cane Scaler Helper Name Role Phone Estrella Prather YONATAN Primary Care Provider [phone] Encounter Details Date Type Department Care Team (Late st Contact Info) Description 12/30/2024 Orders Only [facility] [address] [place] [address] Jeanie Osborn MD [address] [place], [place] [phone] Bacterial vaginosis (Primary Dx) Social History Tobacco Use Types Packs/Day Years [...] Description 03/20/2025 10:00 AM EST Office Visit [facility] [address] [place] [phone] Brian Jeong MD [address] [place] [phone] documented as of this encounter Visit Diagnoses Diagnosis Bacterial vaginosis- Primary Unspecified vaginitis and vulvovaginitis documented in this encounter Additional Health Concerns Assessment Noted Time PHQ-9 Depression Total Score: 4 03/19/20 10:26 AM EST documented as of this encounter Care Teams Field Cane Scaler Helper Relationship Specialty Start Date End Date Estrella Prather NP [address] [place] [address] PCP - General Family Medicine 01/31/24 documented as of this encounter
--- OUTSIDE RECORDS SUMMARY | 2024-12-30 15:57 | XMS_ITS | Encounter Summary ---
Author Organization [employer] Address [address] [facility] [address] [place] [address] Care Team Providers Care Chief Console Operator Name Role Phone Estrella Prather YONATAN Primary Care Provider [phone] Encounter Details Date Type Department Care Team (Latest Contact Info) Description 12/29/2024 Travel Social History Tobacco Use Types Packs/Day [...] Description 03/20/2025 10:00 AM EST Office Visit [facility] [address] [place] [address] Brian Jeong MD [address] [place] [address] documented as of this encounter Visit Diagnoses Not on filedocumented in this encounter Additional Health Concerns Assessment Noted Time PHQ-9 Depression Total Score: 4 03/19/20 10:26 AM EST documented as of this encounter Care Teams Chief Console Operator Relationship Specialty Start Date End Date Estrella Prather NP [address] [place] [address] PCP - General Family Medicine 01/31/24 documented as of this encounter
== END 2024-12-30 11:44 | disposition home or self-care (01) ==
LOC: HO.HHCLNP 11:43
PROVIDERS: Visit Provider Pediatrics
DX: Z11.3 Encounter for screening for infections with a predominantly sexual mode of transmission (principal); Z11.8 Encounter for screening for other infectious and parasitic diseases; N89.8 Other specified noninflammatory disorders of vagina; R39.9 Unspecified symptoms and signs involving the genitourinary system
CPT/HCPCS: 81515; 87086; 87491; 87591